=== PATIENT | female | born 1955 | race Caucasian/White ===

== ENCOUNTER 2023-12-23 11:04 | Outpatient (CLI) | payer MEDICARE, BC, SELFPAY ==
--- NOTE | ~2023-12-23 | PE_ITS ---
EXAMINATION: PET skull to mid thigh DATE: 12/23/2023 13:59 INDICATION: Pulmonary nodule. TECHNIQUE: Blood glucose level was 94 mg/dL. 9.119 mCi of 18-fluorodeoxyglucose (18-FDG) was administ ered i.v. Low dose computed tomography (CT) images were acquired from the base of the brain to the pr oximal thighs for attenuation correction and anatomic localization. Automated exposure control was em ployed. Dose-length product (DLP) was 716 mGy-cm. Positron emission tomography (PET) images were acqu ired in the same distribution. COMPARISON: CT abdomen and pelvis 11/01/2014 FINDINGS: Head/neck: There are likely changes of ocular lens replacement surgeries. There is a 3.5 cm nodule i n left thyroid lobe with maximum SUV of 9.0. Chest: There is mild emphysema. There is a 9 mm cavitary nodule in right upper lobe with maximum SUV of 4.2. A calcified right lung nodule and calcified right hilar lymph nodes are consistent with old g ranulomatous disease. No pleural effusion. The heart size is normal. There are coronary artery calcif ications. There is a 5.1 x 4.8 cm right paratracheal node with maximum SUV of 12.5. Abdomen/pelvis/proximal thighs: Calcifications in the liver and spleen are consistent with old granul omatous disease. There are changes of cholecystectomy. The pancreas, adrenal glands, and right kidney are normal. There is moderate atrophy of left kidney. There are no dilated loops of bowel. The appen rosemarie is normal. There is calcified atherosclerosis of the aorta and many of the other arteries. There are no pathologically enlarged lymph nodes. There is no free intraperitoneal fluid. There is no osseo us malignancy. IMPRESSION: 1. 9 mm cavitary nodule in the right lung upper lobe with maximum SUV of 4.2, consistent with primary bronchogenic carcinoma. CT-guided biopsy is recommended. 2. Right paratracheal lymphadenopathy with increased activity, consistent with metastatic disease. 3. 3.5 cm left thyroid nodule with increased activity, which may be benign or malignant. Ultrasound-g uided fine-needle aspiration is recommended. Reviewed, dictated and finalized at location A. IMPRESSION: 1. 9 mm cavitary nodule in the right lung upper lobe with maximum SUV of 4.2, c onsistent with primary bronchogenic carcinoma. CT-guided biopsy is recommended. 2. Right paratracheal lymphadenopathy with increased activity, consistent with metastatic disease. 3. 3.5 cm left thyroid nodule with increased activity, which may be benign or m alignant. Ultrasound-guided fine-needle aspiration is recommended.
[2023-12-23 12:34] LABS: Glucose Point of Care 94 mg/dl (65-105)
== END 2023-12-23 11:05 | disposition home or self-care (01) ==
LOC: ANHIMG 11:10
PROVIDERS: PCP Registered Nurse; Visit Provider Internal Medicine Critical Care Medicine
DX: R91.8 Other nonspecific abnormal finding of lung field (principal); R59.0 Localized enlarged lymph nodes; E04.1 Nontoxic single thyroid nodule
CPT/HCPCS: 78815; A9552

== ENCOUNTER 2023-12-29 12:03 | Outpatient (CLI) | payer MEDICARE, BC, SELFPAY ==
--- NOTE | 2023-12-29 14:56 | WPDSIXMINUTE ---
Six Minute Walk Procedure Procedure Performed Pulmonary Stress Test (6 min walk) Six Minute Walk Six Minute Walk: This is a 6 minute walk test. The test was performed and interpreted in accordance with the 2014 ERS/ATS task force guidelines. Findings: The patient's resting room air oxygen saturation measured by pulse oximetry was 98%, the heart rate was 58 bpm, and the modified Barbara dyspnea score was 0.5. Patient ambulated for 244 meters and oxygen saturation remained 96 to 98%. At the end of the study the heart rate was 80 bpm and the modified Barbara dyspnea score was 3. The patient did not qualify for supplemental oxygen at rest or with ambulation. There are no prior studies for comparison.
--- NOTE | 2023-12-29 14:58 | WPDPFTINT ---
PFT Procedure Performed PFT Procedure Performed Spirometry with Pre/Post Bronchodilator Plethysmography (Lung Vol) Diffusing Cap (DLCO) Flow Vol Loop PFT Interpretation This is a pulmonary function test with pre and post-bronchodilator spirometry, plethysmography and diffusing capacity. The test was performed and results interpreted in accordance with the 2019 and 2005 ATS/ERS Task Force guidelines respectively using the Global Lung Function Initiative-2012 reference equations. Patient demonstrated good effort and cooperation. Reproducibility criteria were met. The quality of the pre bronchodilator spirometry maneuver was Grade A and post bronchodilator spirometry maneuver was Grade A. Findings: Spirometry: There is decreased maximal expiratory airflow at low lung volumes with concave expiratory flow tracing. The contour the inspiratory flow tracing is normal. The pre bronchodilator FVC is 2.43 L, 93% predicted. The pre bronchodilator FEV1 is 1.66 L, 81% predicted. The pre bronchodilator FEV1: FVC ratio 68%. The post bronchodilator FVC FVC is 2.52 L, representing a 4% increase. The post bronchodilator FEV1 is 1.76 L, representing a 6% increase. The post bronchodilator FEV1: FVC ratio 70%. Plethysmography: The total lung capacity is 3.87 L, 84% predicted. The functional residual capacity is 2.40 L, 92% predicted. The residual volume is 1.44 L, 72% predicted. Diffusing capacity: The diffusing capacity unadjusted for hemoglobin and carboxyhemoglobin is 11.4, 58% predicted. The diffusing capacity adjusted for alveolar volume is 3.31, 74% predicted. Impression: The spirometry is normal without evidence of an obstructive abnormality. There is no significant improvement after inhaling a single dose of albuterol. The lung volumes are normal. The diffusing capacity unadjusted for hemoglobin and carboxyhemoglobin is moderately decreased and normalizes when adjusted for alveolar volume. There are no prior studies for comparison
== END 2023-12-29 12:04 | disposition home or self-care (01) ==
LOC: ANHPFT 12:10
PROVIDERS: PCP Registered Nurse; Visit Provider Internal Medicine Critical Care Medicine
DX: R06.02 Shortness of breath (principal); Z72.0 Tobacco use
CPT/HCPCS: 94060; 94618; 94726; 94729

== ENCOUNTER 2024-01-16 08:29 | Outpatient (CLI) | payer MEDICARE, BC, SELFPAY ==
[2024-01-06 15:58] VITALS: BMI 30.4
--- NOTE | 2024-01-06 15:59 | PC.NURSE ---
Pre Radiology instructions Report to the outpatient marli barbosa on date __01/16/24___ at time __9:00AM for procedure Time: _11:00AM___ YOU MAY BE MONITORED AT HOSPITAL FOR UP TO 4 HOURS AFTER YOUR PROCEDURE. A visitor will be allowed to accompany the patient into the hospital. You and your visitor will be asked to self-screen and do not enter if you have any COVID symptoms. A mask is OPTIONAL within the hospital. Patients are to have no food or drink 6 hours prior to procedure time Driving will be restricted after the procedure, you must have a person to drive you home. Labs will be drawn in preop area and once reviewed, you will be taken to radiology area for procedure. When the procedure is completed, you will be taken to outpatient where you will be monitored for several hours. You may have one visitor in this area. Other than holding anti-coagulants, patient may take other medication(s) as scheduled. Prior to your appointment date patients are instructed to hold anti-coagulants after discussing with ordering provider to stop. If unable to discontinue anti-coagulants please notify radiologist. ? No aspirin or warfarin (Coumadin) for 7 days prior to the procedure. ? No clopidogrel (Plavix), ticagrelor (Brilinta), prasugrel (Effient) or dabigatran (Pradaxa) for 5 days prior to the procedure. ? No rivaroxaban (Xarelto), apixaban (Eliquis), dipyridamole (Aggrenox or Persantine) or cilostazol (Pletal) for 2 days prior to the procedure. Medications to discontinue per physician: __NONE Date to take last dose: Please leave all valuables, including medications, at home the day of procedure. The hospital will not accept responsibility for valuables. Wear comfortable, loose fitting clothing.? Follow any additional instructions given to you from ordering provider. Telephone instructions given to ___PATIENT and asked if any additional questions and then verbalized understanding. Patient advised to call scheduling provider office or registration scheduling [phone] if any additional questions.
[2024-01-16] VITALS (11 sets, daily range): BP systolic 129–156; BP diastolic 50–65; PULSE 58–68; RESP 16–18; TEMP 36.3; O2SAT 94–100; BMI 29.9
--- NOTE | ~2024-01-16 | XR_ITS ---
EXAMINATION: XR chest 1V DATE: 01/16/2024 11:34 INDICATION: Right lung nodule status post percutaneous biopsy. TECHNIQUE: A single frontal view of the chest was obtained. COMPARISON: Chest 2 views 11/30/2009, PET/CT of 12/23/2023 FINDINGS: There are airspace opacities in right upper lung zone. No pleural effusion. There is a smal l right pneumothorax. The heart size is normal. There is right paratracheal lymphadenopathy. IMPRESSION: 1. Airspace opacities in right upper lung zone, consistent with hemorrhage. 2. Small right pneumothorax. 3. Right paratracheal lymphadenopathy, consistent with metastatic disease. Reviewed, dictated and finalized at location A. DLE CARVER
--- NOTE | ~2024-01-16 | XR_ITS ---
EXAMINATION: XR chest 1V portable DATE: 01/16/2024 12:43 INDICATION: Right lung nodule status post percutaneous biopsy. TECHNIQUE: A single frontal view of the chest was obtained. COMPARISON: Chest single view at 11:32 AM FINDINGS: There are airspace opacities in right upper lung zone. No pleural effusion. There is a smal l right pneumothorax. The heart size is normal. There is right paratracheal lymphadenopathy. IMPRESSION: 1. Stable airspace opacities in right upper lung zone, consistent with hemorrhage. 2. Stable small right pneumothorax. 3. Right paratracheal lymphadenopathy, consistent with metastatic disease. Reviewed, dictated and finalized at location A. ENISHMENT BUYER IMPRESSION: 1. Stable airspace opacities in right upper lung zone, consistent with hemorrha ge. 2. Stable small right pneumothorax. 3. Right paratracheal lymphadenopathy, consistent with metastatic disease.
--- NOTE | ~2024-01-16 | XR_ITS ---
EXAMINATION: XR chest 1V portable DATE: 01/16/2024 14:38 INDICATION: Right lung nodule status post percutaneous biopsy. TECHNIQUE: A single frontal view of the chest was obtained. COMPARISON: Chest single view at 12:41 PM FINDINGS: There are airspace opacities in right upper lung zone. No pleural effusion. There is a smal l right pneumothorax. The heart size is normal. There is right paratracheal lymphadenopathy. IMPRESSION: 1. Stable airspace opacities in right upper lung zone, consistent with hemorrhage. 2. Stable small right pneumothorax. 3. Right paratracheal lymphadenopathy, consistent with metastatic disease. Reviewed, dictated and finalized at location A. VASCULAR TECHNOLOGIST IMPRESSION: 1. Stable airspace opacities in right upper lung zone, consistent with hemorrha ge. 2. Stable small right pneumothorax. 3. Right paratracheal lymphadenopathy, consistent with metastatic disease.
--- NOTE | ~2024-01-16 | CT_ITS ---
EXAMINATION: CT biopsy lung w/imaging DATE: 01/16/2024 11:47 INDICATION: Right lung upper lobe nodule. TECHNIQUE: The procedure including the risks, benefits, and alternatives and possibility of chest tub e placement were discussed with the patient. Risks discussed included infection, hemorrhage, approxim ately 1/3 risk of pneumothorax, approximately 1/10 risk of pneumothorax severe enough to warrant ches t tube placement, and rarely . The patient understood the risks and agreed to proceed. The patie nt was placed prone. The skin overlying the right chest was prepped and draped in sterile fashion. Anesthetic was administered with 1% lidocaine subcutaneously. A 19 gauge outer needle was advanced u nder CT guidance to the lesion of interest. A 20 gauge core biopsy needle was then used to obtain 3 c ore biopsy specimens. The needle was removed and the entry site was cleaned and dressed. The mA was a djusted according to patient size. Iterative reconstruction technique was employed. The dose-length p roduct was 140.33 mGy-cm. There were no immediate complications. FINDINGS: CT images demonstrate the outer needle tip adjacent to a 9 mm nodule in right lung upper lo be. Images after the biopsy demonstrates hemorrhage in right upper lobe. IMPRESSION: 1. CT-guided core needle biopsy of a 9 mm nodule in right lung upper lobe. 2. Postbiopsy hemorrhage in right upper lobe. Reviewed, dictated and finalized at location A. BASTING FACING BASTER
[2024-01-16 09:55] LABS: Basophils Percent Auto 0.4 % (0.2-1.2); Eosinophils Absolute Auto 0.3 K/mm3 (0-0.3); Eosinophils Percent Auto 4.7 % (0-4.4); Hematocrit 42.2 % (37.0-47.0); Hemoglobin 13.8 g/dL (12.0-15.0); Immature Granulocyte Absolute 0.02 K/mm3 (0.00-0.031); Immature Granulocyte Percent A 0.3 % (0-0.5); Lymphocytes Percent Auto 31.5 % (18.3-44.2); Mean Corpuscular HGB Conc 32.7 g/dl (32-36); Mean Corpuscular Hemoglobin 29.9 pg (26-34); Mean Corpuscular Volume 91.3 fl (80-100); Mean Platelet Volume 10.5 fl (7.4-10.4); Monocytes Absolute Auto 0.5 K/mm3 (0.1-0.6); Monocytes Percent Auto 6.6 % (2.6-8.5); Neutrophils Percent Auto 56.5 % (45.5-73.1); Platelet Count Result 202 k/mm3 (150-375); Red Blood Count 4.62 M/mm3 (4.2-5.4); Red Cell Distribution Width 13.5 % (11.5-14.5)
[2024-01-16 10:08] LABS: INR 0.9; Prothrombin Time 12.4 Seconds (11.1-14.7)
--- NOTE | 2024-01-16 16:09 | SUR.PHASEII ---
1515 DRESSED & WAITING FOR A RIDE HOME FROM SON. ON HOLD.
== END 2024-01-16 15:37 | disposition home or self-care (01) ==
PROVIDERS: Radiology Diagnostic Radiology; PCP Registered Nurse; Referring Provider Internal Medicine Critical Care Medicine; Visit Provider Radiology Diagnostic Radiology
PROC: BB24ZZZ Computerized Tomography (CT Scan) of Bilateral Lungs (ICD-10-PCS; CPT 32408; principal; 2024-01-16 11:00)
DX: R91.1 Solitary pulmonary nodule (principal)
CPT/HCPCS: 32408; 36415; 71045; 85025; 85049; 85610; 88305; 88342

== ENCOUNTER 2024-02-17 11:01 | Outpatient (CLI) | payer MEDICARE, BC, SELFPAY ==
[2024-02-17 11:58] LABS: Partial Thromboplastin Time 27.3 Seconds (22.3-36.8)
== END 2024-02-17 11:02 | disposition home or self-care (01) ==
LOC: ANHSURGERY 11:06
PROVIDERS: PCP Registered Nurse; Visit Provider Surgery
DX: Z01.812 Encounter for preprocedural laboratory examination (principal); C34.90 Malignant neoplasm of unspecified part of unspecified bronchus or lung; R06.02 Shortness of breath
CPT/HCPCS: 36415; 85730

== ENCOUNTER 2024-02-18 01:27 | Day surgery (SDC) | payer MEDICARE, BC, SELFPAY ==
[2024-02-10 15:21] VITALS: BMI 29.9
--- NOTE | 2024-02-10 15:40 | PC.NURSE ---
Report to the Outpatient Waiting Room, entrance under the green pavilion located off [facility], at time __11:15am on date _02/18/24 . Planned Procedure Time: _1:15pm .? Time changes happen often and if your time is changed the preop area will call you the afternoon before. - You and your visitor will be asked to self-screen and do not enter if you have any COVID symptoms. Please call surgeon if you need to reschedule. - A mask is optional within the hospital at this time. Patients may have clear liquids (water, carbonated beverages, clear teas, apple juice) until 3 hours prior to surgery with a maximum of 20 ounces. - No food from midnight until time of surgery and no smoking. This includes no chewing gum, candy or mints.(10:15am) Take only the following medications with a SIP of water on the morning of surgery: Inhaler that am DO NOT STOP ANY OF YOUR OTHER PRESCRIPTION MEDICATIONS PRIOR TO SURGERY EXCEPT THE FOLLOWING Medications to discontinue per physician None Date to take last dose None Please no make-up, nail ecuadorean, hairspray, perfume, deodorant, or body powder the day of surgery.? No jewelry (including any body piercings) or valuables the day of surgery, leave them at home.? Please take a shower or bath the night before, or the morning of, surgery with an antibacterial soap.? Wear comfortable, loose fitting clothing.? - Jewelry must be removed prior to entering the operating room.? Rings and piercings that are not removed may be cut off. - The hospital will not accept responsibility for valuables.? - Please leave all valuables, including medications, at home the day of surgery. If you are going home after surgery, a licensed taxi cab driver must drive you home.? - NO public transportation without another adult if you receive anesthesia. - We recommend that an adult stay with you for 24 hours following discharge. - We also recommend that you do not drive, make important decision, drink alcoholic beverages, or take any drugs that were not prescribed by your health care provider for at least 24 hours after your discharge time. Follow any additional instructions given to you from your surgeon. Telephone instructions given to _Patient and asked if any additional questions and then verbalized understanding. Patient advised to call surgeon office or pre surgery nurse liaison [phone] if any additional questions.
--- NOTE | ~2024-02-18 | XR_ITS ---
XR chest port-a-cath/central Ordering provider: Lindsay Louis MD History: 69 years Female with . JAZZMINE CATH INSERTION . Comparison: January 16, 2024 FINDINGS: MEDIASTINUM: The cardiac silhouette is not enlarged. Left Port-A-Cath with the tip in the left brachi ocephalic vein. Soft tissue density is seen in the area of the right paratracheal area. Further evalu ation advised. LUNGS: No infiltrates, effusions or pneumothorax. OTHER: No free air under the diaphragm. IMPRESSION: No acute cardiopulmonary pathology. Slightly prominent right paratracheal soft tissues. Further evaluation advised with CT. Reviewed, dictated and finalized at location A. ALS BOARD REFEREE
--- NOTE | ~2024-02-18 | XR_ITS ---
EXAMINATION: XR fl guide central line place DATE: 02/18/2024 13:56 INDICATION: Port placement. TECHNIQUE: 2 intraoperative fluoroscopic views of the chest were obtained. I was not present. Fluoros copy exposure time was 38 seconds. COMPARISON: Chest single view 02/18/2024 FINDINGS: There is a left internal jugular port with tip in superior vena cava. There is right paratr acheal lymphadenopathy, consistent with metastatic disease. IMPRESSION: 1. Port tip in superior vena cava. 2. Right paratracheal lymphadenopathy, consistent with metastatic disease. Reviewed, dictated and finalized at location A. [employer]
[2024-02-18 11:08] VITALS: BP 144/79; PULSE 60; RESP 16; TEMP 36.6; O2SAT 100
[2024-02-18] MEDS: KETOROLAC 15 MG/ML VIAL (*BKC) IV PUSH (11:56)
--- NOTE | 2024-02-18 12:40 | PM.IMHP ---
H&P: HPI History of Present Illness Date/Time: 02/18/24 12:40 Chief Complaint: right-sided lung cancer Narrative: The patient is a 69-year-old female presenting for placement of venous access device. The patient with recently diagnosed right upper lobe lung cancer and will need systemic chemotherapy. The patient denies any previous central venous catheterization. Review of Systems Review of Systems: All systems reviewed & are unremarkable except as noted in HPI and below PMFSH Family History Family History Father Family history of lung cancer Mother Family history of malignant neoplasm of brain Social History Social History Smoking packs per day: 1 Smoking cigarettes per day: 20.0 Years smoked: 50 Smoking pack-years: 50.00 Smoking status: Current every day smoker Tobacco type: cigarettes Second hand tobacco smoke exposure: Yes Alcohol intake: current Substance use: never Living arrangements: with family Additional living arrangements comments: Spiritual care concerns: No Meds Home Medications and Allergies Home Medications ?Medication ?Instructions ?Recorded ?Confirmed ?Type atorvastatin 20 mg tablet 20 mg PO QHS 11/26/23 02/10/24 History calcium citrate 200 mg PO BID 02/03/24 02/10/24 History famotidine 10 mg tablet 10 mg PO DAILY 02/03/24 02/10/24 History Anoro Ellipta 62.5 mcg-25 1 inh inhalation Q24H 1 month #60 02/10/24 02/10/24 Rx mcg/actuation powder for ea inhalation (umeclidinium-vilanterol) omeprazole 40 mg capsule,delayed 40 mg PO DAILY 02/10/24 02/10/24 History release Allergies Allergy/AdvReac Type Severity Reaction Status Date / Time morphine Allergy Intermediate HIVES,ITCHI Verified 02/18/24 11:24 NG Vital Signs Vital Signs - 24 hr 02/18/24 11:08 Temperature 36.6 C Pulse Rate 60 Respiratory Rate 16 Blood Pressure 144/79 H Pulse Oximetry 100 Oxygen Delivery Room Air Exam Const: General: cooperative, comfortable, no acute distress and ill appearing Neck: Neck: normal visual inspection and no lymphadenopathy Chest: Chest palpation & inspection: normal inspection of the chest Resp: Effort & Inspection: normal respiratory effort GI: Inspection: normal to inspection Assessment and Plan Assessment and plan (1) Lung cancer: Code(s): C34.90 - Malignant neoplasm of unspecified part of unspecified bronchus or lung Status: Acute Assessment and Plan: Will set up for venous access device placement for access for systemic chemotherapy, will place on left side given right-sided lung cancer
--- NOTE | 2024-02-18 12:42 | WPDHPUPDATE1 ---
History and Physical Update Update Date/Time: 02/18/24 12:42 History and Physical has been reviewed, including an updated exam of the patient. There are NO changes in the patient's condition. Risks, benefits, and alternatives have been discussed and questions answered. Patient agrees to proceed with procedure.
--- NOTE | 2024-02-18 12:55 | P.PNAN_ITS ---
Anes - Initial Pre Proc Eval Procedure: Operation Date: 02/18/24 13:15 Proposed Procedures p Insertion Samira Cath - Lindsay Louis MD Date/Time: 02/18/24 12:55 Surgeon: Lindsay Louis MD Pre Op Diagnosis: malignant neoplasm of lung Patient Data Age: 69 Gender: F Height: 1.55 m Weight: 71.4 kg Last Vital Signs Temp 97.8 F 02/18/24 11:08 Pulse 60 02/18/24 11:08 Resp 16 02/18/24 11:08 BP 144/79 H 02/18/24 11:08 Pulse Ox 100 02/18/24 11:08 O2 Del Method Room Air 02/18/24 11:08 Allergies Allergy/AdvReac Type Severity Reaction Status Date / Time morphine Allergy Intermediate HIVES,ITCHI Verified 02/18/24 11:24 NG Home Medications ?Medication ?Instructions ?Recorded ?Confirmed ?Type atorvastatin 20 mg tablet 20 mg PO QHS 11/26/23 02/10/24 History calcium citrate 200 mg PO BID 02/03/24 02/10/24 History famotidine 10 mg tablet 10 mg PO DAILY 02/03/24 02/10/24 History Anoro Ellipta 62.5 mcg-25 1 inh inhalation Q24H 1 month #60 02/10/24 02/10/24 Rx mcg/actuation powder for ea inhalation (umeclidinium-vilanterol) omeprazole 40 mg capsule,delayed 40 mg PO DAILY 02/10/24 02/10/24 History release Patient hx anesthesia problems: none Family hx anesthesia problems: none Results Review: All pre-operative results and documents have been reviewed as part of the pre-operative evaluation. [facility] Family History Family History Father Family history of lung cancer Mother Family history of malignant neoplasm of brain Social History Social History Smoking packs per day: 1 Smoking cigarettes per day: 20.0 Years smoked: 50 Smoking pack-years: 50.00 Smoking status: Current every day smoker Tobacco type: cigarettes Second hand tobacco smoke exposure: Yes Alcohol intake: current Substance use: never Living arrangements: with family Additional living arrangements comments: Spiritual care concerns: No Anes - Eval Final PreProcedure Day of Procedure 02/18/24 12:55 Patient weight: overweight Heart: regular rate and rhythm Lungs: clear to auscultation and decreased breath sounds Airway: Mallampati scale and special considerations (Edentulous. ) Neurological: alert and oriented Last oral intake: >/= 8 hours ASA classification: III Emergent: no Anesthetic plan: proceed Anesthesia type and monitoring: general GIVS and standard monitoring Results Review: All pre-operative results and documents have been reviewed as part of the pre- operative evaluation. 50 pack year smoker, now w adenocarcinoma of lung, for port for initiation of chemo. Hyperlipidemia. Informed Consent: The patient's anesthetic plan and its attendant risks and benefits were discussed with the patient/family/POA. Questions were solicited and answers provided to the satisfaction of the patient/family/POA.
[2024-02-18] MEDS: ceFAZolin 2 GM/D5W 50 ML 2 GM/50 ML BAG IVPB (13:05)
[2024-02-18] MEDS: HEPARIN SODIUM 5,000 UNITS/ML VIAL 5000 UNITS IRRIGATION (13:14)
[2024-02-18] MEDS: BUPIVACAINE/EPINEPHRINE 0.5% 30 ML VIAL INFILTRATE (13:14)
[2024-02-18] MEDS: HEPARIN SODIUM, PORCINE 10,000 UNITS/10 ML VIAL 4000 UNITS IV PUSH (13:15)
[2024-02-18 13:50] VITALS: BP 125/51; PULSE 74; RESP 16; O2SAT 100
--- NOTE | 2024-02-18 13:53 | W.PM.PROC2 ---
Procedure Note - Detailed Date of Procedure 02/18/24 Pre-op Diagnosis right lung cancer Post-op Diagnosis Same Procedure Performed placement of left internal jugular venous access device under both ultrasound and fluroscopic guidance Surgeon Lindsay Louis MD Anesthesia MAC and Local Indications 69-year-old female presenting with newly diagnosed right lung cancer needing venous access device for chemotherapy access Findings unable to pass guidewire through left subclavian vein, subsequent access to left internal jugular vein Description of Procedure Patient was brought into the operating room and placed in the supine position. After adequate induction of mac anesthesia, the patient was prepped and draped in normal sterile fashion. Time-out was then done to verify the patient's identity, as well as the procedure being performed. I began by making a small incision in the left chest, I then gained access into the left subclavian vein with an 18 gauge needle. I then attempted to place the guidewire into the vein, however, I could not get the wire to pass over 7 cm. I did attempt to cannulize the subclavian vein a few other times without success. I then used the ultrasound to gain access into the left internal jugular vein. Once access was gained, I placed the guidewire in the vein and confirmed proper positioning. I then locally anesthetized the area in the left chest. I then enlarged the incision including making a subcutaneous pocket inferiorly to allow placement of the port itself. I proceeded to tunnel the catheter from the chest to the left neck insertion site. I then placed a dilating sheath over the guidewire into the left internal jugular vein via sterile Seldinger technique. This was once again done and confirmed via fluoroscopic guidance. I then removed the dilator and the guidewire, now just leaving the sheath in the vein. I then fed the previously flushed catheter into the left internal jugular vein under fluoroscopic guidance. At approximately 28 cm, the catheter was noted to be near the atrial caval junction. I then peeled away the sheath, now just leaving the catheter in the vein. I then was able to easily draw and flush from the catheter. The catheter was cut to fit and attached to the port itself. The port was placed into the previously made subcutaneous pocket and sutured in with 0 Ethibond suture. Final fluoroscopic view showed the termination of the catheter at the atrial caval junction with a nice smooth curvature back to the port itself. I was able to gain access to the port with a Valentin needle and was able to easily draw and flush from the port. I then flushed 4 cc of a final heparin flush into the port. The incision was closed with 3 0 Vicryl suture in the subcutaneous tissue and the skin was closed with 4 O Monocryl subcuticular suture. Dermabond was then placed on wound. The patient tolerated the procedure well and will be sent to the recovery room in stable condition. Implants LIJ VAD Estimated Blood Loss 10 Pathology None sent Complications No immediate complications Condition Stable Disposition PACU [facility] Billing Surgery - Charge Forward: Surgery Billing
[2024-02-18 14:20] VITALS: BP 136/91; PULSE 71; RESP 16
--- NOTE | 2024-02-18 14:27 | SUR.PHASEII ---
This RN contacted Dr Louis regarding xray results. states patient is okay to eat/drink and discharge when she meets discharge guidelines.
[2024-02-18 14:48] VITALS: BP 115/55; PULSE 65; RESP 18
== END 2024-02-18 14:54 | disposition home or self-care (01) ==
PROVIDERS: PCP Registered Nurse; Visit Provider Surgery
PROC: (CPT 36561; principal; 2024-02-18 13:15)
DX: C34.11 Malignant neoplasm of upper lobe, right bronchus or lung (principal); F17.210 Nicotine dependence, cigarettes, uncomplicated; Z79.51 Long term (current) use of inhaled steroids; Z80.1 Family history of malignant neoplasm of trachea, bronchus and lung; Z80.8 Family history of malignant neoplasm of other organs or systems
CPT/HCPCS: 36561; 77001; C1788; J0690; J1644; J1885; J2250; J2704; J3010; J7030

== ENCOUNTER 2024-02-25 09:36 | Outpatient (CLI) | payer MEDICARE, BC, SELFPAY ==
--- NOTE | ~2024-02-25 | MR_ITS ---
MRI of the brain Clinical History: Lung cancer staging Technique: Axial and sagittal T1-weighted images were acquired. These were followed by axial T2-weigh rupert, diffusion weighted, gradient, and FLAIR images. Following intravenous administration of 15 cc Mu ltiHance gadolinium, T1-weighted fat-sat imaging was performed in the axial and coronal planes. Findings: There is an 8 mm enhancing lesion in the left temporal lobe (series 9 image 14, suspicious for intracranial metastasis. No acute infarct or intracranial hemorrhage evident. Ventricles and subarachnoid spaces are unremarkable. Orbits are unremarkable. Paranasal sinuses and m astoid air cells are clear. Major intracranial flow voids are intact. Sagittal midline structures are intact. No abnormal postcontrast enhancement identified. IMPRESSION: 8 mm enhancing mass in the left temporal lobe, suspicious for metastatic lesion. Reviewed, dictated and finalized at location . L [employer] IMPRESSION: 8 mm enhancing mass in the left temporal lobe, suspicious for metastatic lesion .
== END 2024-02-25 09:37 | disposition home or self-care (01) ==
LOC: ANHIMG 09:38
PROVIDERS: PCP Registered Nurse; Visit Provider Radiology Radiation Oncology
DX: C34.90 Malignant neoplasm of unspecified part of unspecified bronchus or lung (principal); G93.9 Disorder of brain, unspecified
CPT/HCPCS: 70553; A9577